=== PATIENT | female | born 1975 | race Caucasian/White ===

== ENCOUNTER → 2017-10-21 | Outpatient (REF) | payer OTHER ==
[2017-10-21 21:31] LABS: ALBUMIN 3.5 GM/DL (3.2-5.2); ALBUMIN/GLOBULIN RATIO 0.81 (1.00-1.93); ALKALINE PHOSPHATASE 75 U/L (45-117); ALT/SGPT 27 U/L (12-78); ANION GAP 8 MEQ/L (8-16); AST/SGOT 14 U/L (7-37); BILIRUBIN,TOTAL 0.5 MG/DL (0.2-1.0); BLOOD UREA NITROGEN 12 MG/DL (7-18); CALCIUM LEVEL 9.1 MG/DL (8.5-10.1); CARBON DIOXIDE LEVEL 33 MEQ/L (21-32); CHLORIDE LEVEL 99 MEQ/L (98-107); CHOLESTEROL LEVEL 221 MG/DL (<200); CREATININE FOR GFR 0.61 MG/DL (0.55-1.30); GLOMERULAR FILTRATION RATE > 60.0 (>58); GLUCOSE, FASTING 76 MG/DL (70-100); HDL CHOLESTEROL 58 MG/DL (>40); LDL CHOLESTEROL 125.8 MG/DL (<100); NON-HDL-C 163 MG/DL; POTASSIUM SERUM 3.9 MEQ/L (3.5-5.1); SODIUM LEVEL 140 MEQ/L (136-145); TOTAL PROTEIN 7.8 GM/DL (6.4-8.2); TRIGLYCERIDES LEVEL 186 MG/DL (<150); VALPROIC ACID (DEPAKOTE) 65.6 UG/ML (50.0-100.0)
== END ==
LOC: M SFHCLERA 16:11
DX: I10 Essential (primary) hypertension (principal); E03.9 Hypothyroidism, unspecified; Z79.899 Other long term (current) drug therapy; E78.2 Mixed hyperlipidemia
CPT/HCPCS: 84443

== ENCOUNTER → 2018-05-27 | Outpatient (REF) | payer OTHER ==
[2018-05-27 16:20] LABS: FREE T4 1.43 NG/DL (0.76-1.46)
[2018-05-27 16:20] LABS: VALPROIC ACID (DEPAKOTE) 81.5 UG/ML (50.0-100.0)
== END ==
LOC: M SFHCPLAZ 13:59
DX: G43.019 Migraine without aura, intractable, without status migrainosus (principal); E03.9 Hypothyroidism, unspecified

== ENCOUNTER → 2018-11-21 | Outpatient (CLI) | payer BC, OTHER ==
[2018-11-21 13:43] LABS: HEMATOCRIT 48.5 % (36.0-47.0); HEMOGLOBIN 15.7 g/dl (12.0-15.5); MEAN CORPUSCULAR HEMOGLOBIN 28.6 pg (27.0-33.0); MEAN CORPUSCULAR HGB CONC 32.4 g/dl (32.0-36.5); MEAN CORPUSCULAR VOLUME 88.3 fl (80.0-96.0); PLATELET COUNT, AUTOMATED 320 10^3/uL (150-450); RED BLOOD COUNT 5.49 10^6/uL (4.00-5.40); WHITE BLOOD COUNT 7.9 10^3/uL (4.0-10.0)
[2018-11-21 13:51] LABS: MAU/CREAT RATIO 7.3 MCG/MG (0.0-30.0)
[2018-11-21 13:59] LABS: ALBUMIN 3.4 GM/DL (3.2-5.2); ALT/SGPT 37 U/L (12-78); BILIRUBIN,TOTAL 0.4 MG/DL (0.2-1.0); BLOOD UREA NITROGEN 11 MG/DL (7-18); CARBON DIOXIDE LEVEL 29 MEQ/L (21-32); CHLORIDE LEVEL 103 MEQ/L (98-107); CHOLESTEROL LEVEL 228 MG/DL (<200); CREATININE FOR GFR 0.59 MG/DL (0.55-1.30); FREE T4 1.35 NG/DL (0.76-1.46); GLOMERULAR FILTRATION RATE > 60.0 (>58); GLUCOSE, FASTING 100 MG/DL (70-100); HDL CHOLESTEROL 50 MG/DL (>40); LDL CHOLESTEROL 139 MG/DL (<100); NON-HDL-C 178 MG/DL; POTASSIUM SERUM 4.2 MEQ/L (3.5-5.1); SODIUM LEVEL 141 MEQ/L (136-145); TOTAL PROTEIN 7.4 GM/DL (6.4-8.2); TRIGLYCERIDES LEVEL 194 MG/DL (<150); VALPROIC ACID (DEPAKOTE) 60.6 UG/ML (50.0-100.0)
== END ==
LOC: M WUC 11:53
PROVIDERS: ATTEND Physician Assistant
DX: E03.9 Hypothyroidism, unspecified (principal); I10 Essential (primary) hypertension; G43.019 Migraine without aura, intractable, without status migrainosus

== ENCOUNTER → 2019-06-04 | Outpatient (CLI) | payer BC ==
[2019-06-04 13:26] LABS: HEMATOCRIT 47.6 % (36.0-47.0); HEMOGLOBIN 15.5 g/dl (12.0-15.5); MEAN CORPUSCULAR HEMOGLOBIN 29.4 pg (27.0-33.0); MEAN CORPUSCULAR HGB CONC 32.6 g/dl (32.0-36.5); MEAN CORPUSCULAR VOLUME 90.3 fl (80.0-96.0); PLATELET COUNT, AUTOMATED 341 10^3/uL (150-450); RED BLOOD COUNT 5.27 10^6/uL (4.00-5.40); WHITE BLOOD COUNT 8.7 10^3/uL (4.0-10.0)
[2019-06-04 14:03] LABS: ERYTHROCYTE SEDIMENTATION RATE 53 mm/hr (0-20)
[2019-06-04 14:36] LABS: ALBUMIN 3.2 GM/DL (3.2-5.2); ALT/SGPT 44 U/L (12-78); BILIRUBIN,TOTAL 0.4 MG/DL (0.2-1.0); BLOOD UREA NITROGEN 10 MG/DL (7-18); CALCIUM LEVEL 9.3 MG/DL (8.5-10.1); CARBON DIOXIDE LEVEL 28 MEQ/L (21-32); CHLORIDE LEVEL 102 MEQ/L (98-107); CHOLESTEROL LEVEL 180 MG/DL (<200); CHOLESTEROL RISK RATIO 3.396 (<5); CREATININE FOR GFR 0.56 MG/DL (0.55-1.30); FREE T4 1.36 NG/DL (0.76-1.46); GLOMERULAR FILTRATION RATE > 60.0 (>58); GLUCOSE, FASTING 78 MG/DL (70-100); HDL CHOLESTEROL 53 MG/DL (>40); LDL CHOLESTEROL 101 MG/DL (<100); NON-HDL-C 127 MG/DL; POTASSIUM SERUM 4.1 MEQ/L (3.5-5.1); SODIUM LEVEL 140 MEQ/L (136-145); TOTAL PROTEIN 7.2 GM/DL (6.4-8.2); TRIGLYCERIDES LEVEL 130 MG/DL (<150); VALPROIC ACID (DEPAKOTE) 63.8 UG/ML (50.0-100.0)
== END ==
LOC: M WUC 10:17
PROVIDERS: ATTEND Nurse Practitioner Family
DX: G43.009 Migraine without aura, not intractable, without status migrainosus (principal); Z51.81 Encounter for therapeutic drug level monitoring

== ENCOUNTER → 2019-09-07 | Outpatient (CLI) | payer BC ==
[2019-09-07 13:20] LABS: BLOOD UREA NITROGEN 13 MG/DL (7-18); CALCIUM LEVEL 8.4 MG/DL (8.5-10.1); CARBON DIOXIDE LEVEL 27 MEQ/L (21-32); CHLORIDE LEVEL 105 MEQ/L (98-107); CREATININE FOR GFR 0.58 MG/DL (0.55-1.30); FREE T4 1.52 NG/DL (0.76-1.46); GLOMERULAR FILTRATION RATE > 60.0 (>58); GLUCOSE, FASTING 80 MG/DL (70-100); POTASSIUM SERUM 3.9 MEQ/L (3.5-5.1); SODIUM LEVEL 139 MEQ/L (136-145); TOTAL 25(OH) VITAMIN D 38.7 NG/ML (30.0-100.0)
== END ==
LOC: M WUC 08:49
PROVIDERS: ATTEND Nurse Practitioner Family
DX: E03.9 Hypothyroidism, unspecified (principal); E55.9 Vitamin D deficiency, unspecified; G43.009 Migraine without aura, not intractable, without status migrainosus; I10 Essential (primary) hypertension

== ENCOUNTER → 2019-12-07 | Outpatient (CLI) | payer BC ==
[2019-12-07 18:17] LABS: BLOOD UREA NITROGEN 14 MG/DL (7-18); CALCIUM LEVEL 9.4 MG/DL (8.5-10.1); CARBON DIOXIDE LEVEL 29 MEQ/L (21-32); CHLORIDE LEVEL 102 MEQ/L (98-107); CREATININE FOR GFR 0.65 MG/DL (0.55-1.30); FREE T4 1.41 NG/DL (0.76-1.46); GLOMERULAR FILTRATION RATE > 60.0 (>58); GLUCOSE, FASTING 102 MG/DL (70-100); POTASSIUM SERUM 4.3 MEQ/L (3.5-5.1); SODIUM LEVEL 140 MEQ/L (136-145); TOTAL 25(OH) VITAMIN D 40.5 NG/ML (30.0-100.0); VALPROIC ACID (DEPAKOTE) 42.6 UG/ML (50.0-100.0)
== END ==
LOC: M WUC 09:53
PROVIDERS: ATTEND Nurse Practitioner Family
DX: E03.9 Hypothyroidism, unspecified (principal); E55.9 Vitamin D deficiency, unspecified; I10 Essential (primary) hypertension; Z51.81 Encounter for therapeutic drug level monitoring

== ENCOUNTER → 2020-06-08 | Outpatient (REF) | payer BC ==
[2020-06-08 18:02] LABS: MALB URINE SIEMENS 12.6 MG/L; MAU/CREAT RATIO 5.6 MCG/MG (0.0-30.0)
[2020-06-08 18:10] LABS: ALBUMIN 3.6 GM/DL (3.2-5.2); ALT/SGPT 84 U/L (12-78); BILIRUBIN,TOTAL 0.6 MG/DL (0.2-1.0); BLOOD UREA NITROGEN 11 MG/DL (7-18); CALCIUM LEVEL 9.8 MG/DL (8.5-10.1); CARBON DIOXIDE LEVEL 31 MEQ/L (21-32); CHLORIDE LEVEL 95 MEQ/L (98-107); FREE T4 1.49 NG/DL (0.76-1.46); GLOMERULAR FILTRATION RATE > 60.0 (>58); GLUCOSE, FASTING 77 MG/DL (70-100); POTASSIUM SERUM 3.7 MEQ/L (3.5-5.1); SODIUM LEVEL 135 MEQ/L (136-145); VALPROIC ACID (DEPAKOTE) 71.7 UG/ML (50.0-100.0)
[2020-06-09 10:07] LABS: TOTAL 25(OH) VITAMIN D 48.3 NG/ML (30.0-100.0)
== END ==
LOC: M SFHCPLAZ 15:51
PROVIDERS: ATTEND Nurse Practitioner Family
DX: I10 Essential (primary) hypertension (principal); E03.9 Hypothyroidism, unspecified; Z51.81 Encounter for therapeutic drug level monitoring; E55.9 Vitamin D deficiency, unspecified

== ENCOUNTER → 2020-08-14 | Outpatient (CLI) | payer BC ==
--- NOTE | 2020-08-14 11:00 | REPVR ---
PROCEDURE INFORMATION: Exam: CT Head Without Contrast Exam date and time: 08/14/2020 10:32 AM Age: 44 years old Clinical indication: Pain; Headache TECHNIQUE: Imaging protocol: Computed tomography of the head without contrast. Radiation optimization: All CT scans at this facility use at least one of these dose optimization techniques: automated exposure control; mA and/or kV adjustment per patient size (includes targeted exams where dose is matched to clinical indication); or iterative reconstruction. COMPARISON: CT Head without contrast 10/05/2015 1:24 PM FINDINGS: Brain: There is mild stable diffuse brain atrophy. There is no acute intracranial hemorrhage. No extra-axial fluid collection. No evidence of acute infarct. Cummings white differentiation is intact. There is no evidence of mass. There is no mass effect or midline shift. Cerebral ventricles: No ventriculomegaly. Bones/joints: No acute fracture. Paranasal sinuses: Visualized sinuses are unremarkable. No fluid levels. Mastoid air cells: No significant mastoid effusion. Soft tissues: Unremarkable as visualized. IMPRESSION: No evidence of acute intracranial abnormality. No acute hemorrhage. No evidence of acute infarct or mass. Electronically signed by: Kassandra Kinney On 08/14/2020 11:00:47 AM
== END ==
LOC: M RAD 10:22
PROVIDERS: ATTEND Psychiatry & Neurology Neurology
DX: R51.9 Headache, unspecified (principal)

== ENCOUNTER → 2020-11-13 | Outpatient (CLI) | payer BC ==
[2020-11-13 16:42] LABS: ALBUMIN 3.4 GM/DL (3.2-5.2); ALT/SGPT 70 U/L (12-78); BILIRUBIN,TOTAL 0.3 MG/DL (0.2-1.0); BLOOD UREA NITROGEN 9 MG/DL (7-18); CALCIUM LEVEL 9.3 MG/DL (8.5-10.1); CARBON DIOXIDE LEVEL 31 MEQ/L (21-32); CHLORIDE LEVEL 105 MEQ/L (98-107); CHOLESTEROL LEVEL 238 MG/DL (<200); CHOLESTEROL RISK RATIO 4.175 (<5); CREATININE FOR GFR 0.62 MG/DL (0.55-1.30); FREE T4 1.36 NG/DL (0.76-1.46); GLOMERULAR FILTRATION RATE > 60.0 (>58); GLUCOSE, FASTING 94 MG/DL (70-100); HDL CHOLESTEROL 57 MG/DL (>40); LDL CHOLESTEROL 149 MG/DL (<100); NON-HDL-C 181 MG/DL; POTASSIUM SERUM 4.4 MEQ/L (3.5-5.1); SODIUM LEVEL 141 MEQ/L (136-145); TRIGLYCERIDES LEVEL 159 MG/DL (<150)
[2020-11-13 16:44] LABS: TOTAL 25(OH) VITAMIN D 37.7 NG/ML (30.0-100.0)
== END ==
LOC: M WUC 11:48
PROVIDERS: ATTEND Nurse Practitioner Family
DX: E03.9 Hypothyroidism, unspecified (principal); I10 Essential (primary) hypertension; E78.2 Mixed hyperlipidemia; F41.1 Generalized anxiety disorder

== ENCOUNTER → 2021-05-16 | Outpatient (CLI) | payer BC ==
[2021-05-16 13:04] LABS: ALBUMIN 3.4 GM/DL (3.2-5.2); ALT/SGPT 47 U/L (12-78); BILIRUBIN,TOTAL 0.4 MG/DL (0.2-1.0); BLOOD UREA NITROGEN 15 MG/DL (7-18); CARBON DIOXIDE LEVEL 26 MEQ/L (21-32); CHLORIDE LEVEL 102 MEQ/L (98-107); CREATININE FOR GFR 0.72 MG/DL (0.55-1.30); FREE T4 1.47 NG/DL (0.76-1.46); GLOMERULAR FILTRATION RATE > 60.0 (>58); GLUCOSE, FASTING 127 MG/DL (70-100); POTASSIUM SERUM 3.5 MEQ/L (3.5-5.1); SODIUM LEVEL 138 MEQ/L (136-145); TOTAL PROTEIN 7.5 GM/DL (6.4-8.2)
[2021-05-16 13:15] LABS: MAU/CREAT RATIO 19.5 MCG/MG (0.0-30.0)
== END ==
LOC: M PLALAB 08:50
PROVIDERS: ATTEND Nurse Practitioner Family
DX: I10 Essential (primary) hypertension (principal); E03.9 Hypothyroidism, unspecified; E55.9 Vitamin D deficiency, unspecified

== ENCOUNTER → 2023-04-28 | Outpatient (CLI) | payer OTHER ==
[2023-04-28 11:34] LABS: BASO # 0.2 10^3/uL (0.0-0.2); EOS # 0.5 10^3/uL (0.0-0.5); EOS % 5.1 % (0.0-3.0); HEMATOCRIT 48.1 % (36.0-47.0); HEMOGLOBIN 15.4 g/dl (12.0-15.5); LYMPH # 3.7 10^3/uL (1.5-5.0); LYMPH % 40.8 % (24.0-44.0); MEAN CORPUSCULAR HEMOGLOBIN 27.8 pg (27.0-33.0); MEAN CORPUSCULAR VOLUME 86.8 fl (80.0-96.0); MONO % 10.4 % (2.0-8.0); NEUTROPHILS # 3.7 10^3/uL (1.5-8.5); NEUTROPHILS % 40.6 % (36.0-66.0); PLATELET COUNT, AUTOMATED 301 10^3/uL (150-450); RED BLOOD COUNT 5.54 10^6/uL (4.00-5.40); WHITE BLOOD COUNT 9.1 10^3/uL (4.0-10.0)
[2023-04-28 11:59] LABS: VALPROIC ACID (DEPAKOTE) 27.5 UG/ML (50.0-100.0)
[2023-04-28 12:01] LABS: ALBUMIN 3.3 G/DL (3.2-5.2); ALKALINE PHOSPHATASE 87 U/L (46-116); ALT/SGPT 16 U/L (7.0-40); AST/SGOT < 8 U/L (<34); BILIRUBIN,TOTAL 0.3 MG/DL (0.3-1.2); BLOOD UREA NITROGEN 18 MG/DL (9-23); CALCIUM LEVEL 9.2 MG/DL (8.5-10.1); CARBON DIOXIDE LEVEL 29 MMOL/L (20-31); CHLORIDE LEVEL 103 MMOL/L (98-107); CREATININE FOR GFR 0.56 MG/DL (0.55-1.30); GLOMERULAR FILTRATION RATE > 60.0 (>58); GLUCOSE, FASTING 99 MG/DL (60-100); POTASSIUM SERUM 3.6 MMOL/L (3.5-5.1); SODIUM LEVEL 141 MMOL/L (136-145); TOTAL PROTEIN 7.4 G/DL (5.7-8.2)
== END ==
LOC: M WUC 09:58
PROVIDERS: ATTEND Psychiatry & Neurology Neurology
DX: R51.9 Headache, unspecified (principal)